=== PATIENT | female | born 1955 | race Caucasian/White ===

== ENCOUNTER 2021-08-19 15:19 | Inpatient (IN) | payer OTHER ==
[~2021-08-19] VITALS: Ht 157.5 cm; Wt 89.8 kg
[2021-08-19 15:36] VITALS: BP 148/74
[2021-08-19] MEDS ORDERED: LISINOPRIL-HCT1 EAC1 PO (15:44)
[2021-08-19] MEDS ORDERED: PROZAC10 M1 PO (15:45)
[2021-08-19 15:50] LABS: HEMATOCRIT 38.9 % (37.0-47.0); HEMOGLOBIN 13.3 gm/dL (12.0-15.0); MCH 31.3 pg (26.0-34.0); MCHC 34.3 g/dL (28.0-37.0); MCV 91.3 fL (80.0-100.0); NUCLEATED RBCS 0 /100WBC; PLATELET COUNT* 329 thou/uL (150-400); RBC 4.26 mil/uL (4.20-5.00); RDW-CV 12.9 % (10.5-14.5); WBC 7.7 thou/uL (4.0-11.0)
[2021-08-19 16:00] LABS: CALCIUM 8.9 mg/dL (8.5-10.1); CREATININE 1.1 mg/dL (0.6-1.3)
[2021-08-19 16:11] LABS: ALBUMIN 3.2 g/dL (3.4-5.0); TOTAL BILIRUBIN 0.4 mg/dL (<0.1-1.0); TOTAL PROTEIN 7.1 g/dL (6.4-8.2)
[2021-08-19 16:23] LABS: ABSOLUTE LYMPHOCYTES 0.5 thou/uL (0.8-5.3); ABSOLUTE MONOCYTES 0.1 thou/uL (0.0-1.2); ABSOLUTE NEUTROPHILS 7.1 thou/uL (1.6-8.1)
[2021-08-19 16:24] LABS: PLATELET ESTIMATE ADEQUATE
[2021-08-19 20:30] VITALS: BP 98/58
[2021-08-20] VITALS (30 sets, daily range): BP systolic 41–122; BP diastolic 15–91
--- NOTE | 2021-08-20 01:18 | NUR ---
PURE WICK PUT ON D/T PATIENT DESAT WHEN UP. PATIENT IS AT 89-90% AT REST. RT WAS INFORMED.
--- NOTE | 2021-08-20 01:30 | NUR ---
PATIENT PUT ON BIPAP. REMAINS SOA WITH LABORED BREATHING. WAITING ON DR. ALFREDO FOR RETURN CALL.
--- NOTE | 2021-08-20 02:16 | NUR ---
DR. ALFREDO INFORMED. NEW ORDERS ENTERED.
[2021-08-20 02:58] LABS: BE -1.4 mmol/L (-2 to +3); PCO2 43.8 mmHg (35.0-45.0); pH 7.359 (7.340-7.450)
--- NOTE | 2021-08-20 09:14 | EKG ---
[place] [address] ELECTROCARDIOGRAM REPORT Name: POOJA PROCTORISE Aleta Room: [place] [address] ADM IN ..#: [id number] Admission: 08/19/21 Attend Phys: Grant Silva Discharge: Date of : 53 Date of Service: 08/19/21 1535 Report #: [id number] THIS REPORT FOR: //name// 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 : 1955 Requested By: Haroldo Porter Order Number: [id number] MD: José Migule Chandler Measurements Intervals [place] Rate: 105 P: -60 GA: 172 QRS: 19 QRSD: 100 T: -76 QT: 337 QTc: 446 Interpretive Statements Significant baseline artifact low voltage, precordial leads Nonspecific repol abnormality, diffuse leads Baseline wander in lead(s) V1 No previous ECG available for comparison Recommend repeat study Electronically Signed On 08-20-2021 9:14:14 IT AUDIT MANAGER by José Miguel Chandler [email or web address] <ELECTRONICALLY SIGNED> By: José Miguel Chandler MD, FACC 08/20/21 0914 1535 1535 José Miguel Chandler MD, FACC /EPI
--- NOTE | 2021-08-20 15:40 | NUR ---
Attempted assessment x2. Pt is in isolation - due to patient's need to be intubated -pt was agreeable to sign DPOA paperwork nominating dtr - Gayla . This was notarized and a copy placed on chart. Called Gayla x2 to complete assessment but no answer and a message was left. CM to continue to follow for discharge planning.
--- NOTE | 2021-08-20 16:01 | 2DMMODE ---
[place] [address] 2 D/M-MODE ECHOCARDIOGRAM Name: JUANCHO PROCTOR Room: [address] IN [facility]#: [id number] Admission: 08/19/21 Attend Phys: Grant Silva Discharge: Date of : 53 Date of Service: 08/20/21 1601 Report #: [id number] THIS REPORT FOR: cc: [facility] - Clinic physician unknown [facility] - Clinic physician unknown José Miguel Chandler MD [facility] ~ APPROVED REPORT Study performed: 08/20/2021 15:04:35 EXAM: Comprehensive 2D, Doppler, and color-flow Echocardiogram Patient Location: In-Patient Room #: ER Status: routine BSA: 1.81 HR: 57 bpm BP: 89/59 mmHg Rhythm: NSR Other Information Study Quality: Good Indications Dyspnea 2D Dimensions IVSd: 10.82 (7-11mm) LVOT Diam: 19.71 (18-24mm) LVDd: 51.51 mm PWd: 9.00 (7-11mm) Ascending Ao: 35.83 (22-36mm) LVDs: 30.87 (25-40mm) Aortic Root: 32.98 mm Volumes Left Atrial Volume (Systole) LA ESV Index: 43.50 mL/m2 Aortic Valve AoV Peak Ramone.: 1.14 m/s AO Peak Gr.: 5.22 mmHg LVOT Max P.06 mmHg AO Mean Gr.: 2.67 mmHg LVOT Mean P.50 mmHg LVOT Max V: 0.88 m/s AO V2 VTI: 22.29 cm LVOT Mean V: 0.56 m/s DAVID (VTI): 3.25 cm2 LVOT V1 VTI: 23.71 [place] [address] 2 D/M-MODE ECHOCARDIOGRAM Name: JUANCHO PROCTOR Room: [address] IN .R.#: [id number] Admission: 08/19/21 Attend Phys: Grant Silva Discharge: Date of : 53 Date of Service: 08/20/21 1601 Report #: [id number] Mitral Valve E/A Ratio: 1.83 MV Decel. Time: 250.70 ms MV E Max Ramone.: 0.90 m/s MV PHT: 72.70 ms MVA (PHT): 3.03 cm2 TDI E/Lateral E': 8.18 E/Medial E': 9.00 Medial E' Ramone.: 0.10 m/s Lateral E' Ramone.: 0.11 m/s Pulmonary Valve PV Peak Ramone.: 0.84 m/s PV Peak Gr.: 2.80 mmHg Left Ventricle The left ventricle is normal size. There is normal LV segmental wall motion. There is normal left ventricular wall thickness. Left ventricular systolic function is normal. LVEF is 55-60%. The left ventricular diastolic function is normal. Right Ventricle The right ventricle is normal size. The right ventricular systolic function is normal. Atria Left atrium is mildly dilated. The right atrium size is normal. Aortic Valve The aortic valve is normal in structure. No aortic regurgitation is present. There is no aortic valvular stenosis. Mitral Valve The mitral valve is normal in structure. Mild mitral regurgitation. No evidence of mitral valve stenosis. Tricuspid Valve The tricuspid valve is normal in structure. Trace tricuspid regurgitation. No apparent pulmonary hypertension. Pulmonic Valve The pulmonary valve is normal in structure. Trace pulmonic regurgitation[place] [address] 2 D/M-MODE ECHOCARDIOGRAM Name: JUANCHO PROCTOR Room: [address]#: [id number] Admission: 08/19/21 Attend Phys: Grant Silva Discharge: Date of : 53 Date of Service: 08/20/21 1601 Report #: [id number] The aortic root is normal in size. IVC is normal in size and collapses >50% with inspiration. Pericardium There is no pericardial effusion. <Conclusion> The left ventricle is normal size. There is normal left ventricular wall thickness. Left ventricular systolic function is normal. LVEF is 55-60%. The left ventricular diastolic function is normal. Left atrium is mildly dilated. Mild mitral regurgitation. Trace tricuspid regurgitation. No apparent pulmonary hypertension. IVC is normal in size and collapses >50% with inspiration. <ELECTRONICALLY SIGNED> By: José Miguel Chandler MD, FACC 08/20/21 1601 1601 1601 José Miguel Chandler MD, FACC /INF
[2021-08-20 16:56] LABS: BE -2.5 mmol/L (-2 to +3); PCO2 44.3 mmHg (35.0-45.0); PO2 88.2 mmHg (75.0-100.0); pH 7.341 (7.340-7.450)
--- NOTE | 2021-08-20 20:06 | NUR ---
PT ARRIVED TO UNIT ON BIPAP 100% TACHYPNIC AND INCREASED WOB. PROVIDER CONACTED - PRECEDEX STARTED. PT BECAME HYPOTENSIVE AND HEYDI WITH PRECEDEX - STOPPED AND 500CC BOLUS SHIVANI. SPOKE WITH PATIENT REGARDING CODE STATUS AND INTUBATION. SHE DOES NOT WISH TO BE INTUBATED AT THIS TIME UNLESS ABSOLUTLY EMERGENT. SHE UNDERSTANDS THE LOW SURVIVAL RATE OF INTUBATED COVID PATIENTS. SHE HAS AGREED TO ALLOW HER DAUGHTER TO ACT HER DPOA IF SHE IS UNABLE TO MAKE DESCISIONS. ATEMPTED TO TRANSISTION TO HEATED HIGH FLOW - DID NOT TOLERATE SPO2 <88%. SWITCEHD BACK TO BIPAP - SPO2 IMPROVED.
[2021-08-20 22:29] LABS: CALCIUM 7.8 mg/dL (8.5-10.1); CREATININE 0.8 mg/dL (0.6-1.3); POTASSIUM 5.4 mmol/L (3.5-5.1)
[2021-08-20 22:35] LABS: ALBUMIN 2.5 g/dL (3.4-5.0); MAGNESIUM 2.1 mg/dL (1.8-2.4); TOTAL BILIRUBIN 0.3 mg/dL (<0.1-1.0); TOTAL PROTEIN 5.6 g/dL (6.4-8.2)
[2021-08-20 23:10] LABS: ABSOLUTE LYMPHOCYTES 0.3 thou/uL (0.8-5.3); ABSOLUTE MONOCYTES 0.2 thou/uL (0.0-1.2); ABSOLUTE NEUTROPHILS 6.2 thou/uL (1.6-8.1); BASOPHILS 0.1 %; HEMOGLOBIN 11.5 gm/dL (12.0-15.0); LYMPHOCYTES 4.9 %; MCH 30.4 pg (26.0-34.0); MCHC 32.9 g/dL (28.0-37.0); MCV 92.4 fL (80.0-100.0); MONOCYTES 3.6 %; MPV 7.6 fl. (7.2-11.1); NUCLEATED RBCS 0 /100WBC; POLYS 91.4 %; RBC 3.79 mil/uL (4.20-5.00); WBC 6.7 thou/uL (4.0-11.0)
[2021-08-20 23:13] LABS: PLATELET COUNT* 249 thou/uL (150-400)
[2021-08-21] VITALS (159 sets, daily range): BP systolic 80–139; BP diastolic 42–82
--- NOTE | 2021-08-21 02:20 | NUR ---
PT HYPOTENSIVE (MAP 58-60) AND TACHYPNEIC WITH RR 48-55. DR BOLCK CALLED AND MADE AWARE. ORDERS TO INTUBATE PATIENT AND BEGIN VERSED AND FENTANYL DRIP POST INTUBATION FOR SEDATION, AND OBTAIN SPUTUM CULTURE. FAMILY AND PATIENT MADE AWARE OF ORDERS AND BOTH IN AGREEANCE THAT THEY WOULD LIKE TO DISCUSS THIS IN PERSON. RUBBER MOULDING MACHINE OPERATOR GAVE PERMISSION FOR DAUGHTER AMISH TO COME VISIT WITH PATIENT AND DISCUSS THEIR OPTIONS. AT THIS TIME, THEY HAVE CHOSEN TO CHANGE PATIENT'S CODE STATUS TO DNI, THEY DO NOT WANT INTUBATION. DR. CROWELL MADE AWARE OF WISHES AND ORDERED FOR CODE STATUS CHANGE AT 0020 AND ORDERED FOR 1 MG OF ATIVAN FOR COMFORT MEASURES Q3H PRN IVPUSH.
--- NOTE | 2021-08-21 02:26 | NUR ---
PT BECAME TACHYPNEIC WITH RR IN 50'S AGAIN AND DECREASED LOC. DAUGHTER ASKED TO CHANGE CODE STATUS TO DNR AND FOR MEDICATION TO ASSIST PATIENT WITH COMFORT MEASURES. DR CROWELL CALLED AND GAVE ORDERS FOR DNR AND MORPHINE 2MG/Q2H IVPUSH PRN, ATIVAN 1MG/Q2H IVPUSH PRN, AND BENADRYL 12.5MG/Q4H IVPUSH PRN.
--- NOTE | 2021-08-21 03:24 | NUR ---
[facility] CALLED AT 0318. REFERAL NUMBER [id number]. INSTRUCTED TO CALL WITH TIME OF CARDIAC , OR IF PATIENT CHOOSES INTUBATION/LOSES REFLEXES.
[2021-08-21 08:33] LABS: BE -2.1 mmol/L (-2 to +3); PCO2 45.6 mmHg (35.0-45.0); PO2 61.3 mmHg (75.0-100.0); pH 7.337 (7.340-7.450)
[2021-08-21 12:44] LABS: ABSOLUTE LYMPHOCYTES 0.4 thou/uL (0.8-5.3); ABSOLUTE MONOCYTES 0.4 thou/uL (0.0-1.2); ABSOLUTE NEUTROPHILS 5.7 thou/uL (1.6-8.1); BASOPHILS 0.4 %; HEMATOCRIT 34.2 % (37.0-47.0); HEMOGLOBIN 11.2 gm/dL (12.0-15.0); LYMPHOCYTES 5.6 %; MCH 30.7 pg (26.0-34.0); MCHC 32.8 g/dL (28.0-37.0); MCV 93.7 fL (80.0-100.0); MONOCYTES 5.5 %; MPV 7.7 fl. (7.2-11.1); NUCLEATED RBCS 0 /100WBC; PLATELET COUNT* 261 thou/uL (150-400); POLYS 88.5 %; RBC 3.65 mil/uL (4.20-5.00); RDW-CV 13.3 % (10.5-14.5); WBC 6.4 thou/uL (4.0-11.0)
[2021-08-21 12:57] LABS: ALBUMIN 2.2 g/dL (3.4-5.0); CALCIUM 7.9 mg/dL (8.5-10.1); CREATININE 0.8 mg/dL (0.6-1.3); MAGNESIUM 2.7 mg/dL (1.8-2.4); TOTAL BILIRUBIN 0.3 mg/dL (<0.1-1.0); TOTAL PROTEIN 5.6 g/dL (6.4-8.2)
[2021-08-21 13:02] LABS: POTASSIUM 6.6 mmol/L (3.5-5.1)
[2021-08-21 13:36] LABS: ABSOLUTE LYMPHOCYTES 0.3 thou/uL (0.8-5.3); ABSOLUTE MONOCYTES 0.2 thou/uL (0.0-1.2); ABSOLUTE NEUTROPHILS 5.5 thou/uL (1.6-8.1); BASOPHILS 0.1 %; HEMATOCRIT 37.3 % (37.0-47.0); HEMOGLOBIN 12.3 gm/dL (12.0-15.0); LYMPHOCYTES 5.7 %; MCH 30.5 pg (26.0-34.0); MCV 92.4 fL (80.0-100.0); MONOCYTES 3.8 %; MPV 7.3 fl. (7.2-11.1); NUCLEATED RBCS 0 /100WBC; PLATELET COUNT* 274 thou/uL (150-400); POLYS 90.4 %; RBC 4.04 mil/uL (4.20-5.00); RDW-CV 13.3 % (10.5-14.5)
[2021-08-21 13:43] LABS: CALCIUM 8.1 mg/dL (8.5-10.1); CREATININE 0.8 mg/dL (0.6-1.3)
[2021-08-21 13:46] LABS: POTASSIUM 5.1 mmol/L (3.5-5.1)
[2021-08-21 13:48] LABS: ALBUMIN 2.5 g/dL (3.4-5.0); MAGNESIUM 2.4 mg/dL (1.8-2.4); TOTAL BILIRUBIN 0.3 mg/dL (<0.1-1.0); TOTAL PROTEIN 6.1 g/dL (6.4-8.2)
--- NOTE | 2021-08-21 15:15 | CON ---
[address] [address] CONSULTATION Name: JUANCHO PROCTOR Room: [address] IN M.R.#: [id number] Admission: 08/19/21 Attend Phys: Neela Conde Discharge: Date of : 53 Report #: [id number] THIS REPORT FOR: cc: [facility] - Clinic physician unknown [facility] - Clinic physician unknown Ross Cardona MD ~ DATE OF CONSULTATION: 08/20/2021 Consult has been requested by Dr. Corley. INDICATION FOR CONSULTATION: Acute hypoxemic respiratory failure, secondary to COVID-19. HISTORY OF PRESENT ILLNESS: This is a 65 years old female who has an extensive history of smoking. She has discontinued now. Unclear as to whether she previously has a diagnosis of COPD. The patient's grandson has had COVID-19. She herself has been sick for more than 2 weeks and has had nausea and vomiting, primarily has had respiratory complaints for about a week, has been having increasing shortness of breath and has had a cough. There is not much sputum, has been feeling progressively weak and has had poor appetite. She did not have a fever, not much swelling of lower extremities, no calf pain, does not describe upper respiratory complaints. REVIEW OF SYSTEMS: For 12 points is negative, except as mentioned above. The patient was found to be hypoxemic on arrival. She currently is on a BiPAP of 15/8 with 100% FiO2 and has a Precedex drip running. She did appear to be comfortable with this therapy, though at the time of my evaluation, blood pressure is towards the lower end of normal range. PAST MEDICAL HISTORY: Anxiety, hypertension, tubal ligation, hernia repair, not clear to me as to whether she has been diagnosed with COPD in the past or not, but she does have an extensive history of smoking. SOCIAL HISTORY: Extensive history of smoking, discontinued now, unable to quantify exactly. ALLERGIES: No known drug allergies. VACCINATION HISTORY: She has not been vaccinated for COVID-19. FAMILY HISTORY: There is a history of COVID-19 in her family as above. CURRENT MEDICATIONS: [place] [address] CONSULTATION Name: JUANCHO PROCTOR Aleta Room: [address]#: [id number] Admission: 08/19/21 Attend Phys: Neela Conde Discharge: Date of : 53 Report #: [id number] HOME MEDICATIONS: List in [place] reviewed. PHYSICAL EXAMINATION: VITAL SIGNS: She was drowsy. She was arousable, on a BiPAP of 15/8 with 100% FiO2. She was saturating 94%, respiratory rate was around 27-28, pulse 65, blood pressure 100/71, afebrile with a temperature of 36.3. Body mass index is elevated to 32. HEENT: Head is normocephalic and atraumatic. Pupils are equal and reactive. She has a narrow airway. There is a BiPAP in place. NECK: Does not show raised JVP, asymmetry, mass or lymph nodes. CHEST: Symmetrical expansion on inspection and palpation. On auscultation, breath sounds are bilaterally equal. I do not hear any added sounds. HEART: Regular. There is no murmur. ABDOMEN: Soft and nontender. EXTREMITIES: Lower extremities show trace edema, no calf tenderness. SKIN: Dry and intact. NEUROLOGIC: Moves all extremities bilaterally equally and spontaneously with no focal deficit identified. LABORATORY DATA: The patient's echocardiogram as well as chest x-ray, CTA chest as well as lab work in [facility] reviewed. I reviewed the CTA chest films as well as the chest x-ray films myself. ASSESSMENT AND PLAN: 1. Acute hypoxemic respiratory failure, secondary to COVID-19. I agree with current management as ordered by Dr. Corley. She is stable on current BiPAP settings, but is requiring 100% FiO2. I feel that, for now, we can still watch her on BiPAP. She may require endotracheal intubation if she was to decline. I recommend that we place a PICC line for more secure IV access. Note that her blood pressure is also on the lower side. 2. COVID-19. I agree with dexamethasone as ordered by Dr. Corley. I will go ahead and give her an additional dose of Solu-Medrol now as well. I also fully agree with Actemra. Also, I understand that remdesivir will be of limited benefit, but I feel that there will still be some benefit in administering and benefits appear to outweigh risks. Therefore, I went ahead and ordered. LFTs are mildly elevated yesterday. We will follow these. Certainly, if LFTs continue to rise, then we will discontinue. 3. Pulmonary infiltrates. Considering over 2 weeks' history, agree with broadly covering with antibiotics. She is on doxycycline, received one dose of ceftriaxone in the ER. I would continue ceftriaxone as well. Recommend obtaining a nasal swab for methicillin-resistant Staphylococcus aureus if feasible, then obtain a sputum culture as well. 4. Bronchospasm/history of smoking/possible chronic obstructive pulmonary disease. Her heart rate is on the lower side, so in fact increased her [facility] [address] [place] [address] CONSULTATION Name: JUANCHO PROCTOR Room: [address] IN [facility]#: [id number] Admission: 08/19/21 Attend Phys: Neela Conde Discharge: Date of : 53 Report #: [id number] to scheduled q. 4 hours. We will continue with budesonide, 1 dose of Solu-Medrol and then Decadron as above. 5. Evaluation for thromboembolic phenomena/deep venous thrombosis prophylaxis, is on intermediate dose Lovenox. There is no obvious evidence of thromboembolism on CTA chest and echo. I agree with current dose of Lovenox. I ordered a D-dimer, including other labs today. These have not been drawn yet. If the D-dimer is elevated, then I would obtain venous Dopplers as well. 6. Gastrointestinal prophylaxis. We will give her Pepcid or Protonix. 7. Clostridium difficile prophylaxis. Recommend Lactinex if able to take p.o. 8. Hyperglycemia, is on an insulin sliding scale, ordered by Dr. Corley. The patient is critically ill at this time. Total time spent providing critical care to this patient today exceeds 42 minutes. <ELECTRONICALLY SIGNED> By: Ross Cardona MD 08/21/21 1515 1850 1953Atalat Cardona MD /nt
--- NOTE | 2021-08-21 16:25 | NUR ---
Received request to meet with dtr this AM. She is wanting to see if pt progresses in 24-48 hours but wants Hospice set up with [facility] in case pt does not do well - as pt would prefer to be home. Received orders from doctor - dtr - signed outside DNR - but need physicians signature. Faxed referral with [facility] ( and ) confirmed they receive referral - and they are meeting with dtr today. Pt is currently on Bipap @ 100% Fio2 - does not appear to want to be intubated at this point. Pt did sign DPOA paperwork and it is on the chart but dtr is also asking about getting Power of Business Development Representative paperwork notarized - discussed pt is too sedated at this point. CM to continue to follow for discharge planning.
[2021-08-22] VITALS (22 sets, daily range): BP systolic 109–148; BP diastolic 61–88
[2021-08-22 04:55] LABS: HEMATOCRIT 35.4 % (37.0-47.0); HEMOGLOBIN 11.6 gm/dL (12.0-15.0); MCH 30.4 pg (26.0-34.0); MCHC 32.9 g/dL (28.0-37.0); MCV 92.6 fL (80.0-100.0); MPV 7.5 fl. (7.2-11.1); RBC 3.83 mil/uL (4.20-5.00); RDW-CV 12.9 % (10.5-14.5); WBC 7.9 thou/uL (4.0-11.0)
[2021-08-22 05:17] LABS: ALBUMIN 2.9 g/dL (3.4-5.0); CALCIUM 8.2 mg/dL (8.5-10.1); MAGNESIUM 2.3 mg/dL (1.8-2.4); TOTAL BILIRUBIN 0.5 mg/dL (<0.1-1.0); TOTAL PROTEIN 6.3 g/dL (6.4-8.2)
[2021-08-22 06:10] LABS: POTASSIUM 4.1 mmol/L (3.5-5.1)
[2021-08-22 07:53] LABS: BE 0.1 mmol/L (-2 to +3); PCO2 38.2 mmHg (35.0-45.0); pH 7.422 (7.340-7.450)
[2021-08-22 08:03] LABS: PO2 58.3 mmHg (75.0-100.0)
--- NOTE | 2021-08-22 11:20 | NUR ---
Family has arrived and would like to discharge pt home with [facility]. Called Brayan at [facility] - several back and forth conversations as to whether or not [facility] could provide enough oxygen on pt's current Bipap settings - 15 with 90%Fio2. At first [facility] was not sure if they could admit but they had some admission fall through. In order to discharge patient we will need the following: *Script written for Bipap with settings and mask size *Outside DNR written *Ambulance set up Texts physician and warehouse supervisor. Just currently waiting for doctor to round and see if he will discharge pt and write script/sign Outside DNR. [facility]: [phone] and CM following for discharge planning
[2021-08-22 18:05] LABS: CALCIUM 8.3 mg/dL (8.5-10.1); MAGNESIUM 2.4 mg/dL (1.8-2.4); POTASSIUM 4.2 mmol/L (3.5-5.1)
--- NOTE | 2021-08-22 19:23 | NUR ---
Pt laying in bed, resting comfortably on continuous BiPAP at 90%. Pt was able to come off the BiPAP during this RN's shift and onto HHF for meals and PRN. The longest the pt was able to tolerate the HHF was for an hour. PT became tired and started to desat into the high 80s, pt switched back to BiPAP. Earlier in the shift, pt desatted down to the low 60s. RN entered the room to see the BiPAP had become detached. RN reattached BiPAP to the mask, pt immediately started to come on her O2 saturations reading at 70s then 80s and then pt was able to recover herself. PRN Morphine administered for air hunger. Pt resting quietly in bed. Hospice still pending and being set up based off of what the pt's oxygen requirements will be. Currently, pt would not be able to tolerate the ambulance ride from this facility to pt's house. Pt too unstable for travel at this time d/t desatting very quickly and unable to recover easily. Per boiler house operator, hospice does have a BiPAP available for the pt to use once she does arrive home. Information passed onto the oncoming shift. Pt's daughter at the bedside. Will continue to monitor.
[2021-08-23] VITALS (24 sets, daily range): BP systolic 95–153; BP diastolic 43–88
[2021-08-23 04:33] LABS: ABSOLUTE LYMPHOCYTES 0.4 thou/uL (0.8-5.3); ABSOLUTE MONOCYTES 0.5 thou/uL (0.0-1.2); ABSOLUTE NEUTROPHILS 8.1 thou/uL (1.6-8.1); BASOPHILS 0.1 %; HEMATOCRIT 36.2 % (37.0-47.0); HEMOGLOBIN 12.1 gm/dL (12.0-15.0); LYMPHOCYTES 4.1 %; MCH 30.9 pg (26.0-34.0); MCHC 33.5 g/dL (28.0-37.0); MCV 92.2 fL (80.0-100.0); MONOCYTES 5.1 %; MPV 7.7 fl. (7.2-11.1); NUCLEATED RBCS 0 /100WBC; PLATELET COUNT* 301 thou/uL (150-400); POLYS 90.7 %; RBC 3.93 mil/uL (4.20-5.00); RDW-CV 12.7 % (10.5-14.5)
[2021-08-23 05:10] LABS: ALBUMIN 2.9 g/dL (3.4-5.0); CALCIUM 8.2 mg/dL (8.5-10.1); CREATININE 0.8 mg/dL (0.6-1.3); MAGNESIUM 2.3 mg/dL (1.8-2.4); POTASSIUM 4.2 mmol/L (3.5-5.1); TOTAL BILIRUBIN 0.6 mg/dL (<0.1-1.0); TOTAL PROTEIN 6.3 g/dL (6.4-8.2)
[2021-08-23 06:18] LABS: BE -2.3 mmol/L (-2 to +3); PCO2 36.8 mmHg (35.0-45.0); PO2 70.4 mmHg (75.0-100.0); pH 7.396 (7.340-7.450)
[2021-08-24] VITALS (12 sets, daily range): BP systolic 103–133; BP diastolic 57–76
[2021-08-24 10:52] LABS: HEMOGLOBIN 12.1 gm/dL (12.0-15.0); NUCLEATED RBCS 0 /100WBC; WBC 9.2 thou/uL (4.0-11.0)
[2021-08-24 10:53] LABS: HEMATOCRIT 36.8 % (37.0-47.0); MCH 30.4 pg (26.0-34.0); MCHC 32.9 g/dL (28.0-37.0); MCV 92.4 fL (80.0-100.0); MPV 7.5 fl. (7.2-11.1); PLATELET COUNT* 292 thou/uL (150-400); RBC 3.98 mil/uL (4.20-5.00); RDW-CV 12.7 % (10.5-14.5)
[2021-08-24 11:06] LABS: ALBUMIN 2.8 g/dL (3.4-5.0); CALCIUM 8.4 mg/dL (8.5-10.1); CREATININE 0.8 mg/dL (0.6-1.3); POTASSIUM 4.6 mmol/L (3.5-5.1); TOTAL BILIRUBIN 0.5 mg/dL (<0.1-1.0); TOTAL PROTEIN 5.9 g/dL (6.4-8.2)
[2021-08-24 11:24] LABS: ABSOLUTE LYMPHOCYTES 0.6 thou/uL (0.8-5.3); ABSOLUTE MONOCYTES 0.1 thou/uL (0.0-1.2); ABSOLUTE NEUTROPHILS 8.6 thou/uL (1.6-8.1); PLATELET ESTIMATE ADEQUATE
--- NOTE | 2021-08-24 14:20 | NUR ---
ICU rounds: Pt remains on Bipap Isolation: Currently in Covid isolation Living Situation: Lives with dtr DPOA: Yes - copy placed on chart Code Status: DNR D/C Plan: At this time - Home with [facility] Waiting for pt's oxygen needs to decrease. We are waiting to see if pt will improve before family takes pt home on Hospice care. Referral has been made to [facility] ( and ). Doctor did sign outside DNR form today. CM to continue to follow for discharge planning.
--- NOTE | 2021-08-24 15:24 | 2DMMODE ---
[place] [address] 2 D/M-MODE ECHOCARDIOGRAM Name: JUANCHO RPOCTOR Room: [address] ADM IN M.R.#: [id number] Admission: 08/19/21 Attend Phys: Grant Silva Discharge: Date of : 53 Date of Service: 08/24/21 1523 Report #: [id number] THIS REPORT FOR: cc: [facility] - Clinic physician unknown [facility] - Clinic physician unknown Golden Ballard MD [facility] ~ APPROVED REPORT Study performed: 08/24/2021 14:06:53 EXAM: Limited 2D, Doppler, and color-flow Echocardiogram Patient Location: In-Patient Room #: 002 Status: routine BSA: 1.90 HR: 72 bpm BP: 124/76 mmHg Rhythm: NSR Other Information Study Quality: Good Indications Dyspnea resassess PA systolic Left Ventricle The left ventricle is normal size. There is normal LV segmental wall motion. Borderline concentric left ventricular hypertrophy. The left ventricular systolic function is normal. The left ventricular ejection fraction is within the normal range. LVEF is 60%. Right Ventricle The right ventricle is normal size. The right ventricular systolic function is normal. Atria Left atrium is mildly dilated. Aortic Valve The aortic valve is normal in structure. Mitral Valve The mitral valve is normal in structure. [facility] [address] [place] [address] 2 D/M-MODE ECHOCARDIOGRAM Name: JUANCHO PROCTOR Room: [address] ADM IN M.R.#: [id number] Admission: 08/19/21 Attend Phys: Grant Silva Discharge: Date of : 53 Date of Service: 08/24/21 1523 Report #: [id number] Tricuspid Valve The tricuspid valve is normal in structure. Trace tricuspid regurgitation. Unable to assess PA pressure. Pulmonic Valve The pulmonary valve is normal in structure. Great Vessels The aortic root is normal in size. IVC is normal in size and collapses >50% with inspiration. Pericardium There is no pericardial effusion. <Conclusion> The left ventricle is normal size. Borderline concentric left ventricular hypertrophy. The left ventricular systolic function is normal. The left ventricular ejection fraction is within the normal range. LVEF is 60%. The right ventricle is normal size. Left atrium is mildly dilated. The aortic valve is normal in structure. The mitral valve is normal in structure. The tricuspid valve is normal in structure. IVC is normal in size and collapses >50% with inspiration. There is no pericardial effusion. There is normal LV segmental wall motion. <ELECTRONICALLY SIGNED> By: Golden Ballard MD, [facility] 08/24/21 1523 1523 1523 Golden Ballard MD, FACC /INF
[2021-08-25 04:00] VITALS: BP 118/85
--- NOTE | 2021-08-25 06:54 | NUR ---
PATIENT TRANSFERRED TO ROOM 119 FROM ICU AT APPROXIMATELY 2030. PATIENT HAS SLEPT OFF AND ON DURING THE NIGHT, BUT ANXIOUS AND PULLS BIPAP OFF AND OXYGEN SATURATIONS DROP. PATIENT IS A DNR/DNI AND CURRENTLY ON BIPAP AT 100% FI02. PICC LINE TO RIGHT ARM-ELECTROLYTES RUNNING AT 30ML/HR. PATIENTS HEART RATE STARTED INCREASING AT APPROXIMATELY 0458 THIS AM. EKG DONE AND PATIENT IN AFIB RVR. DR. TEJADA NOTIFIED VIA JOSE COLON. DAUGHTER CALLED REGARDING CHANGE IN STATUS. DAUGHTER TO BE HER TO STAY WITH PATIENT THIS AM. FALL PRECAUTIONS IN PLACE AND HOURLY ROUNDS MADE. WILL CONTINUE WITH PLAN OF CARE AND NURSING TO MONITOR.
[2021-08-25 09:07] VITALS: BP 83/62
[2021-08-25 12:00] VITALS: BP 93/42
--- NOTE | 2021-08-25 18:43 | NUR ---
CM FOLLOWUP PT ON COMFORT CARE AND 100% BIPAP.
--- NOTE | 2021-08-25 18:51 | NUR ---
PATIENT COMFORT CARE. ON 15L NRB. FAMILY AT THE BEDSIDE.
--- NOTE | 2021-08-25 20:00 | NUR ---
PATIENT AT 1910 AND WAS PRONOUNCED BY 2 NURSES. PATIENTS FAMILY WAS WITH HER AT THE BEDSIDE. INSPECTOR BALANCE BRIDGE NOTIFIED, DR. ALFREDO AND DR. BLOCK NOTIFIED. SURING TRANSPLANT CALLED AND PATIENT NOT CANDIDATE FOR ORGAN OR TISSUE DONATION. FAMILY STAYED HERE FOR QUITE SOME TIME WITH PATIENT AND TRYING TO DECIDE ON A HOME. HOME IS IN [place], [place]. HOME WAS CALLED AND WILL WILL BE HERE IN THE AM TO PICK PATIENT UP.
--- NOTE | 2021-08-26 11:05 | EKG ---
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: OCTAVIA : 1955 Requested By: Bonilla Bardales Order Number: [id number] Colleen MD: Golden Ballard Measurements Intervals Bryan Rate: 160 P: [place]: QRS: 13 QRSD: 84 T: 47 QT: 285 QTc: 465 Interpretive Statements Atrial fibrillation with rapid V-rate ST depression, probably rate related Compared to ECG 08/19/2021 15:35:18 ST (T wave) deviation now present Early repolarization no longer present Electronically Signed On 08-26-2021 11:04:50 SURVEYOR OIL WELL DIRECTIONAL by Golden Ballard [email or web address] <ELECTRONICALLY SIGNED> By: Golden Ballard MD, [facility] 08/26/21 1104 06 0602 Golden Ballard MD, [facility] /EPI
== END 2021-08-25 19:10 | DRG 177 ==
LOC: M.ERS 15:19 → M.TBA-ER 16:11 → M.ICU 16:11 → M.TBA-ER 08-20 08:00 → M.ICU 08-20 13:57 → M.ORTHSURG 08-24 20:37
PROVIDERS: Family Medicine; Internal Medicine; Internal Medicine Critical Care Medicine; ADMIT Internal Medicine; ATTEND Internal Medicine
PROC: 5A0935A Assistance with Respiratory Ventilation, Less than 24 Consecutive Hours, High Flow/Velocity Cannula (ICD-10-PCS; principal; 2021-08-19)
PROC: 5A09457 Assistance with Respiratory Ventilation, 24-96 Consecutive Hours, Continuous Positive Airway Pressure (ICD-10-PCS; 2021-08-20)
PROC: XW033H5 Introduction of Tocilizumab into Peripheral Vein, Percutaneous Approach, New Technology Group 5 (ICD-10-PCS; 2021-08-20)
PROC: XW033E5 Introduction of Remdesivir Anti-infective into Peripheral Vein, Percutaneous Approach, New Technology Group 5 (ICD-10-PCS; 2021-08-20)
PROC: 02HV33Z Insertion of Infusion Device into Superior Vena Cava, Percutaneous Approach (ICD-10-PCS; 2021-08-20)
PROC: 5A09457 Assistance with Respiratory Ventilation, 24-96 Consecutive Hours, Continuous Positive Airway Pressure (ICD-10-PCS; 2021-08-22)
DX: U07.1 COVID-19 (principal); J96.01 Acute respiratory failure with hypoxia; J12.82 Pneumonia due to coronavirus disease 2019; J15.9 Unspecified bacterial pneumonia; F41.9 Anxiety disorder, unspecified; I10 Essential (primary) hypertension; J44.9 Chronic obstructive pulmonary disease, unspecified; E87.5 Hyperkalemia; R73.9 Hyperglycemia, unspecified; I73.9 Peripheral vascular disease, unspecified; E66.01 Morbid (severe) obesity due to excess calories; I48.91 Unspecified atrial fibrillation; G47.33 Obstructive sleep apnea (adult) (pediatric); Z87.891 Personal history of nicotine dependence; Z51.5 Encounter for palliative care; Z83.6 Family history of other diseases of the respiratory system; Z82.49 Family history of ischemic heart disease and other diseases of the circulatory system; Z68.36 Body mass index [BMI] 36.0-36.9, adult